=== PATIENT | female | born 1950 | race Caucasian/White ===

== ENCOUNTER 2016-06-15 09:29 | Emergency (ER) | payer OTHER ==
[~2016-06-15 09:29] MED LIST: CELEXA20 MG PO; CIPRO500 MG PO; FLAGYL500 MG PO; LACTINEX CHEWA1 EACH PO; PRILOSEC40 MG PO; SPIRIVA18 MCG IH; SYMBICORT 16010.2 GM IH; VENTOLIN HFA8 GM IH; ZOCOR20 MG PO; ZOFRAN4 MG PO
== END 2016-06-15 13:33 | disposition home or self-care (01) ==
LOC: ER 09:29
DX: J44.1 Chronic obstructive pulmonary disease with (acute) exacerbation (principal); R11.2 Nausea with vomiting, unspecified; K21.9 Gastro-esophageal reflux disease without esophagitis; E78.5 Hyperlipidemia, unspecified; Z90.710 Acquired absence of both cervix and uterus; Z90.49 Acquired absence of other specified parts of digestive tract; Z79.82 Long term (current) use of aspirin; Z79.899 Other long term (current) drug therapy; Z88.6 Allergy status to analgesic agent
CPT/HCPCS: 36415; 96374; 96375; J2765; Q9967

== ENCOUNTER → 2016-06-19 | Day surgery (SDC) | payer OTHER | END | disposition home or self-care (01) | LOC: SDCH 09:46 | DX: D12.2 Benign neoplasm of ascending colon (principal); K29.50 Unspecified chronic gastritis without bleeding; K63.5 Polyp of colon; K44.9 Diaphragmatic hernia without obstruction or gangrene; K57.30 Diverticulosis of large intestine without perforation or abscess without bleeding; J44.9 Chronic obstructive pulmonary disease, unspecified; I10 Essential (primary) hypertension; K21.9 Gastro-esophageal reflux disease without esophagitis; Z90.49 Acquired absence of other specified parts of digestive tract; Z90.710 Acquired absence of both cervix and uterus; F17.210 Nicotine dependence, cigarettes, uncomplicated | CPT/HCPCS: J2704 ==